=== PATIENT | female | born 1980 | race Caucasian/White ===

== ENCOUNTER → 2021-04-20 | Day surgery (SDC) | payer OTHER ==
[~2021-04-20] VITALS: Ht 167.6 cm; Wt 74.8 kg
[~2021-04-20] MED LIST: COLACE100 MG PO; ELDERBERRY-VIT1 EACH PO; IBUPROFEN800 M1 PO; MAGNESIUM PO; MULTIVITAMINS1 EAC6 PO; PERCOCET 5-3251 EACH PO; VITAMIN B125000 MCG PO; VITAMIN C 500500 M1 PO; VITAMIN D350 MC3 PO; ZOFRAN4 M1 PO
[2021-04-20 07:37] LABS: HCT 41.9 % (37.0-47.0); HGB 13.7 g/dl (12.5-16.0); MCHC 32.7 g/dL (32.0-36.0); MCV 85.7 fL (78.0-100.0); MPV 10.6 fL (6.0-9.5); RBC 4.89 M/uL (4.20-5.40); RDW 11.9 % (11.5-14.0); WBC 7.4 K/uL (4.0-10.5)
[2021-04-20 08:01] LABS: HCG (URINE) SCREEN NEGATIVE (NEGATIVE)
== END | disposition home or self-care (01) ==
LOC: FAS 06:46
PROVIDERS: Obstetrics & Gynecology
DX: N72 Inflammatory disease of cervix uteri (principal); N83.202 Unspecified ovarian cyst, left side; N81.4 Uterovaginal prolapse, unspecified; N93.9 Abnormal uterine and vaginal bleeding, unspecified; F41.9 Anxiety disorder, unspecified; Z79.899 Other long term (current) drug therapy; Z88.1 Allergy status to other antibiotic agents; Z88.8 Allergy status to other drugs, medicaments and biological substances; Z87.440 Personal history of urinary (tract) infections
CPT/HCPCS: 36415; 84703; 86850; 86900; 86901; J0690; J1100; J1170; J2250; J2405; J2704; J3010; J7120

== ENCOUNTER 2021-05-03 11:01 | Emergency (ER) | payer OTHER ==
[2021-05-03 12:18] LABS: BASOPHIL 1.1 % (0-2); HCT 38.6 % (37.0-47.0); HGB 12.5 g/dl (12.5-16.0); LYMPHOCYTE 17.7 % (15-48); MCH 27.8 pg (25.0-31.0); MCHC 32.4 g/dL (32.0-36.0); MONOCYTE 5.2 % (0-12); MPV 10.5 fL (6.0-9.5); NEUTROPHIL 63.4 % (41-80); NRBC 0; PLT 240 K/uL (150-400); RBC 4.49 M/uL (4.20-5.40); RDW 11.9 % (11.5-14.0); WBC 10.9 K/uL (4.0-10.5)
[2021-05-03 12:24] LABS: BILIRUBIN NEGATIVE (NEGATIVE); BLOOD 1+ Ery/uL (NEGATIVE); CLARITY CLEAR (CLEAR); COLOR YELLOW (YELLOW); GLUCOSE (U) NORMAL (NORMAL); LEUKOCYTES 1+ Leu/uL (NEGATIVE); NITRITE NEGATIVE (NEGATIVE); PROTEIN NEGATIVE (NEGATIVE); UROBILINOGEN 0.2 mg/dL (0.2-1.0)
[2021-05-03 12:27] LABS: INR 1.07 (0.9-1.2); PROTHROMBIN TIME 13.3 SECONDS (11.8-13.4); PTT 31.5 SECONDS (24.4-34.7)
[2021-05-03 12:36] LABS: BACTERIA 1+
[2021-05-03 12:58] LABS: MAGNESIUM 2.1 mg/dL (1.8-2.4)
[2021-05-03 13:54] LABS: BUN/CREAT RATIO (CALC) 20.3 RATIO; CREATININE 0.64 mg/dL (0.51-0.95)
[2021-05-03] MEDS ORDERED: NEXIUM40 MG PO (15:19)
[2021-05-03] MEDS ORDERED: CARAFATE S500 MG/TSP PO (15:19)
== END 2021-05-03 15:42 | disposition home or self-care (01) ==
LOC: FER 11:01
PROVIDERS: Emergency Medicine
DX: K29.70 Gastritis, unspecified, without bleeding (principal); K21.00 Gastro-esophageal reflux disease with esophagitis, without bleeding; K29.80 Duodenitis without bleeding; Z88.1 Allergy status to other antibiotic agents; Z91.040 Latex allergy status
CPT/HCPCS: 36415; 71275; 80048; 81001; 82728; 83540; 83615; 83735; 84484; 85025; 85610; 85730; 86140; 93005; C9113; Q9967